=== PATIENT | female | born 1985 | race Caucasian/White ===

== ENCOUNTER 2019-05-02 14:30 | Outpatient (CLI) | payer OTHER, SELFPAY ==
--- NOTE | 2019-05-07 12:41 | WPDHOLTEREM ---
Holter/Event Monitor Holter/Event Monitor Date of procedure: 05/02/19 Procedure Type: 48 hour holter monitor Indications: Palpitations Conclusion: 1. 48 hour holter monitor on 05/02/19. 2. Predominant rhythm is sinus rhythm. HR range 47-179 bpm; average HR 81 bpm. 3. There are 484 premature supraventricular complexes, 29 supraventricular couplets, 12 supraventricular bigeminy. There are 22 runs of atrial flutter, fastest at 179 bpm and longest lasting 169 beats. 4. There are 2 premature ventricular complexes. No ventricular tachycardia. 5. The longest pause is 2.1 seconds at 22:56 upon changing rhythm from atrial flutter to sinus rhythm. 6. Patient reports symptoms of rapid heart rate which demonstrate atrial flutter, HR range 92-164 bpm and 2 episodes of sinus rhythm, HR range 76-106 bpm.
== END 2019-05-02 14:31 | disposition home or self-care (01) ==
PROVIDERS: PCP Family Medicine; Visit Provider Nurse Practitioner Family
DX: R00.2 Palpitations (principal)
CPT/HCPCS: 93225; 93226

== ENCOUNTER 2019-06-16 07:18 | Outpatient (CLI) | payer OTHER, SELFPAY ==
--- NOTE | 2019-06-16 07:21 | ECHO_ITS ---
Patient Info Name: Eugenie Connors Age: 33 years : 1985 Gender: Female Ht: 68 in Wt: 120 lbs BSA: 1.60 m2 HR: 64 bpm BP: 88 / 64 mmHg Technical Quality: Good Exam Date: 06/16/2019 7:52 AM Exam Location: [facility] Patient Status: Outpatient Admit Date: 06/16/2019 Staff Ordering Physician: Jordi Lyle DO Fire Control Technician G: Janie Tillman RDCS Attending Provider: Jordi Lyle DO Referring Physician: Valdo AYALA; Exam Type: CA echo doppler color flow Study Info Indications I48.92 - UNSPECIFIED ATRIAL FLUTTER Complete two-dimensional, color flow and Doppler transthoracic echocardiogram is performed. Summary 1. Left ventricular chamber dimension is normal. 2. Left ventricular systolic function is normal, estimated at 60-65%. 3. The left ventricular diastolic function is normal. 4. E/e' 4 is not elevated. 5. Global longitudinal strain is normal at -18.7%. 6. There is mild mitral valve regurgitation. 7. No pulmonary hypertension, estimated pulmonary arterial systolic pressure is 25 mmHg. Left Ventricle E/e' 4 is not elevated. Global longitudinal strain is normal at -18.7%. Left ventricular chamber dimension is normal. Left ventricular systolic function is normal, estimated at 60-65%. The left ventricular diastolic function is normal. Right Ventricle Right ventricular chamber dimension is normal. Right ventricular systolic function is normal. Left Atria Left atrial chamber dimension is normal. Right Atria Right atrial chamber dimension is normal. Aortic Valve The aortic valve is trileaflet. There is no aortic valve stenosis. There is no aortic valve regurgitation. Pulmonic Valve There is no pulmonic regurgitation. Mitral Valve There is no mitral valve stenosis. There is mild mitral valve regurgitation. Tricuspid Valve There is no tricuspid valve regurgitation. No pulmonary hypertension, estimated pulmonary arterial systolic pressure is 25 mmHg. Pericardium/Pleural There is no pericardial effusion. Inferior Vena Cava Normal inferior vena cava with >50% collapse upon inspiration consistent with normal right atrial pressure, 5 mmHg. Aorta The aortic root size at the sinus of Valsalva is normal. Left Ventricular Outflow Tract Name Value Normal LVOT 2D LVOT Diameter 2.1 cm LVOT Doppler LVOT Peak Velocity 95 cm/s LVOT Peak Gradient 4 mmHg LVOT Mean Gradient 2 mmHg LVOT VTI 20 cm LVOT VTI/AV VTI Ratio 0.8 LVOT Stroke Volume 66 ml LVOT CO 4.5 l/min LVOT CI 2.8 l/min/m2 Pulmonic Valve Name Value Normal RVOT Doppler RVOT Peak Gradient 2 mmHg
== END 2019-06-16 07:19 | disposition home or self-care (01) ==
LOC: ANHCARD 07:21
PROVIDERS: PCP Family Medicine; Visit Provider Internal Medicine Cardiovascular Disease
DX: I48.92 Unspecified atrial flutter (principal)
CPT/HCPCS: 93306